=== PATIENT | male | born 1955 | race Caucasian/White ===

== ENCOUNTER 2020-11-03 13:31 | Outpatient (REF) | payer OTHER, SELFPAY ==
--- NOTE | ~2020-11-03 | XR_ITS ---
EXAMINATION: XR KNEE, LEFT CLINICAL INFORMATION: Left knee pain COMPARISON: None TECHNIQUE: Four views of the left knee. FINDINGS: There is normal bony mineralization. No fracture, dislocation, or destructive process. There is no joint narrowing or erosive change or chondrocalcinosis. Hoffa's fat pad appears normal. There is spurring at the quadriceps insertion patella. The quadriceps soft tissues appear thickened on the lateral view although patient is slightly obliqued which may be related to positioning. It is difficult to exclude small suprapatellar effusion. XR/XR knee LT 4V IMPRESSION: 1. No fracture, dislocation, destructive process, or joint narrowing. 2. Spurring at quadriceps insertion patella. 3. Question thickening in region of quadriceps tendon with small suprapatellar effusion. Recommend correlation with patient's symptoms and clinical exam. If clinically indicated, further evaluation may be obtained with MRI.
== END 2020-11-03 13:32 | disposition home or self-care (01) ==
LOC: HO.HMGCX 13:31
PROVIDERS: PCP Physician Assistant; Visit Provider Hospitalist
DX: M25.562 Pain in left knee (principal)
CPT/HCPCS: 73564